=== PATIENT | female | born 1950 | race Caucasian/White ===

== ENCOUNTER 2020-09-21 14:15 | Emergency (ER) | payer BC, MEDICARE ==
[2020-09-21 14:26] VITALS: BP 160/106; PULSE 97; RESP 18; TEMP 97.9
--- NOTE | 2020-09-21 15:32 | ED ---
General Adult HPI - General Chief complaint: Recheck/Abnormal Lab/Rx Stated complaint: covid exposure Time Seen by Provider: 09/21/20 14:26 Source: patient Mode of arrival: ambulatory Limitations: no limitations - History of Present Illness Initial comments: 70-year-old female presents to emergency department for Covid testing. Patient reports recent she came from [place] and will like to be tested. She does not have any symptoms. No history of Covid or vaccinations. Denies any other complaints. - Related Data Previous Rx's Medication Instructions Recorded Levothyroxine Sodium [Synthroid] 100 mcg PO DAILY@0630 tab 01/18/15 amLODIPine [Norvasc] 5 mg PO DAILY tab 01/18/15 Allergies Allergy/AdvReac Type Severity Reaction Status Date / Time Latex, Natural Rubber Allergy Rash/Hives Verified 09/21/20 14:23 Penicillins Allergy Unknown Verified 09/21/20 14:23 Childhood Review of Systems ROS Statement: Those systems with pertinent positive or pertinent negative responses have been documented in the HPI. ROS Other: All systems not noted in ROS Statement are negative. Past Medical History Past Medical History: Cancer, Hypertension, Thyroid Disorder Additional Past Medical History / Comment(s): Breast Cancer 03/07/1995; chemo and radiation. History of Any Multi-Drug Resistant Organisms: None Reported Past Surgical History: Tubal Ligation Past Anesthesia/Blood Transfusion Reactions: No Reported Reaction Past Psychological History: No Psychological Hx Reported Smoking Status: Current every day smoker Past Alcohol Use History: Heavy Past Drug Use History: None Reported General Exam Limitations: no limitations General appearance: alert, in no apparent distress Head exam: Present: atraumatic, normocephalic, normal inspection Eye exam: Present: normal appearance, PERRL, EOMI Pupils: Present: normal accommodation ENT exam: Present: normal exam, normal oropharynx, mucous membranes moist Neck exam: Present: normal inspection, full ROM. Absent: tenderness, lymphadenopathy Respiratory exam: Present: normal lung sounds bilaterally. Absent: respiratory distress Cardiovascular Exam: Present: regular rate, normal rhythm, normal heart sounds. Absent: systolic murmur Extremities exam: Present: normal inspection, full ROM, normal capillary refill. Absent: tenderness Back exam: Present: normal inspection, full ROM. Absent: tenderness Neurological exam: Present: alert, oriented X3 Psychiatric exam: Present: normal affect, normal mood. Absent: depressed Skin exam: Present: warm, dry, intact, normal color Course Vital Signs 09/21/20 14:24 Temperature 97.9 F Pulse Rate 97 Respiratory 18 Rate Blood Pressure 160/106 O2 Sat by Pulse 97 Oximetry Medical Decision Making - Medical Decision Making 70-year-old female presents to emergency with a chief complaint of elevated testing. Patient has no complaints. Vitals within normal limits. Covid positive. Cold protocol discussed. I offered monoclonal antibody, she declined. Return parameters discussed the patient is an attending agreeable. Case discussed with Dr. Huddleston - Lab Data Lab Results 09/21/20 Range/Units 14:43 Influenza Type A (PCR) Not Detected (Not Detectd) Influenza Type B (PCR) Not Detected (Not Detectd) RSV (PCR) Not Detected (Not Detectd) SARS-CoV-2 (PCR) Detected A (Not Detectd) Disposition Clinical Impression: COVID-19 Disposition: HOME SELF-CARE Condition: Stable Instructions (If sedation given, give patient instructions): Coronavirus Disease 2019 (COVID-19) Additional Instructions: Please return to the Emergency Department if symptoms worsen or any other concerns. Is patient prescribed a controlled substance at d/c from ED?: No Referrals: Verona Florez MD [Primary Care Provider] - 1-2 days Time of Disposition: 15:58
== END 2020-09-21 16:15 | disposition home or self-care (01) ==
LOC: EC 14:15
DX: U07.1 COVID-19 (principal); I10 Essential (primary) hypertension; F17.200 Nicotine dependence, unspecified, uncomplicated; Z85.3 Personal history of malignant neoplasm of breast; E07.9 Disorder of thyroid, unspecified; Z79.890 Hormone replacement therapy
CPT/HCPCS: 87636; 99283

== ENCOUNTER → 2024-05-17 | Outpatient (CLI) | payer MEDICARE ==
--- NOTE | 2024-05-17 13:37 | XR ---
EXAMINATION TYPE: XR lumbosacral spine min 4V DATE OF EXAM: 05/17/2024 12:39 PM COMPARISON: None CLINICAL INDICATION: Female, 73 years old with history of M54.41, G89.29, M53.3; [facility] TECHNIQUE: XR lumbosacral spine min 4V - Frontal, lateral , bilateral oblique and coned in L5-S1 late ral views of the spine. FINDINGS: No evidence of any acute osseous pathology. No evidence of loss of vertebral body height i s seen. There is grade 1 anterolisthesis of L4 and L5 and L3 on L4 alignment of the lumbar vertebral bodies. Additionally there is mild scoliosis changes apex right L3 Mild scattered disc space narrowin g. Multilevel marginal osteophyte formation throughout the visualized spine. There is facet joint art hropathy throughout the spine. Scattered at least mild L2-L3. Mild to moderate Neural foraminal steno sis. IMPRESSION: 1. No acute fracture. 2. Moderate to severe multilevel disc degeneration. 3. Grade 1 anterolisthesis of L4 and L5 and L3 on L4 4. Mild scoliosis changes. [facility], , 05/17/2024 1:34 PM
--- NOTE | 2024-05-17 13:39 | XR ---
EXAMINATION TYPE: XR Hip Complete RT DATE OF EXAM: 05/17/2024 12:38 PM COMPARISON: None CLINICAL INDICATION: Female, 73 years old with history of M54.41, G89.29, M53.3; [facility], pain TECHNIQUE: XR Hip Complete RT; Frontal and lateral views FINDINGS: No evidence for acute process, joint dislocation or significant soft tissue swelling. Osteo phyte formation of the superior acetabulum of the hip. There is mild joint space narrowing. IMPRESSION: 1. No evidence for acute process. 2. Mild hip osteoarthrosis. [facility], , 05/17/2024 1:37 PM
--- NOTE | 2024-05-17 13:41 | XR ---
EXAMINATION TYPE: XR femur RT DATE OF EXAM: 05/17/2024 12:38 PM COMPARISON: None CLINICAL INDICATION: Female, 73 years old with history of M54.41, G89.29, M53.3; [facility], pain TECHNIQUE: XR femur RT examined in Frontal and lateral projections. FINDINGS: No evidence of acute osseous pathology, joint dislocation, or soft tissue swelling. Mild o steophyte formations of the superior acetabulum, tibial plateau and patella. Mild joint space narrowi ng of the knee and hip. IMPRESSION: 1. No acute osseous pathology. 2. Mild degeneration changes of the hip and right knee. [facility], , 05/17/2024 1:38 PM
--- NOTE | 2024-05-17 13:42 | XR ---
EXAMINATION TYPE: XR sacroiliac joint comp BILAT DATE OF EXAM: 05/17/2024 12:38 PM COMPARISON: None CLINICAL INDICATION: Female, 73 years old with history of M54.41, G89.29, M53.3; TECHNIQUE: The sacroiliac joints were examined in a frontal and oblique projections. FINDINGS: There is no evidence of fracture or dislocation. There is no soft tissue abnormality. No a bnormal calcifications are present. Multilevel degenerative changes of the lower spine. Mild degeneration changes of the sacroiliac joints bilaterally with osteophyte formation. IMPRESSION: 1. No acute osseous pathology. 2. Mild bilateral sacroiliac joint osteoarthrosis. [facility], , 05/17/2024 1:40 PM
== END | disposition home or self-care (01) ==
LOC: RADXRMAIN 11:56
PROVIDERS: ATTEND Family Medicine
DX: M54.41 Lumbago with sciatica, right side (principal); G89.29 Other chronic pain; M53.3 Sacrococcygeal disorders, not elsewhere classified; M16.11 Unilateral primary osteoarthritis, right hip; M17.11 Unilateral primary osteoarthritis, right knee; M43.16 Spondylolisthesis, lumbar region
CPT/HCPCS: 72110; 72202; 73502